=== PATIENT | female | born 1980 | race Caucasian/White ===

== ENCOUNTER 2016-11-12 18:56 | Emergency (ER) | payer BC ==
[~2016-11-12] VITALS: Ht 160 cm; Wt 71.3 kg
[~2016-11-12 18:56] MED LIST: ASPIRIN 81M81 MG/TA2 PO; FOLIC ACID 40400 MCG PO; PRENATAL1 TA1 PO; PROMETRIUM200 M1 PO; VITAMIND3 5000 PO
[2016-11-12 19:00] VITALS: TEMP 98.2
[2016-11-12] MEDS ORDERED: PROPYLTHIOURACI50 M1 PO (19:03)
[2016-11-12] MEDS ORDERED: GLUCOPHAGE500 MG/TAB PO (19:04)
[2016-11-12] MEDS ORDERED: FLONASE NASAL S16 GM NS (19:05)
[2016-11-12] MEDS ORDERED: VITAMIN B100 CO1 TAB PO (19:05)
[2016-11-12] MEDS ORDERED: ZYRTEC 10MG10 MG PO (19:06)
[2016-11-12 19:55] LABS: PH 6 (5-8); SQUAMOUS EPITHELIAL 0-2 /hpf; URINE APPEARANCE Clear; URINE BACTERIA Rare /hpf; URINE BILIRUBIN Negative (NEGATIVE); URINE BLOOD Negative (NEGATIVE); URINE COLOR Straw; URINE GLUCOSE Negative (NEGATIVE); URINE KETONE Negative (NEGATIVE); URINE RBC 0-2 /hpf; URINE UROBILINOGEN Negative (NEGATIVE); URINE WBC 0-2 /hpf
[2016-11-12 21:33] VITALS: BP 131/80; PULSE 90
[2016-11-13 01:35] LABS: CHLAMYDIA/TRACH by PCR Female NOT DETECTED; NEISSERIA GON by PCR Female NOT DETECTED
== END 2016-11-12 21:32 | disposition home or self-care (01) ==
LOC: COL.ER 18:56
PROVIDERS: Emergency Medicine
DX: O20.0 Threatened abortion (principal); Z3A.08 8 weeks gestation of pregnancy; O09.521 Supervision of elderly multigravida, first trimester; O99.281 Endocrine, nutritional and metabolic diseases complicating pregnancy, first trimester; E03.9 Hypothyroidism, unspecified; E28.2 Polycystic ovarian syndrome

== ENCOUNTER → 2020-08-22 | Outpatient (CLI) | payer BC ==
[2004-06-20 01:05] VITALS: TEMP 99.4
[~2020-08-22] MED LIST changes: +FLONASE NASAL S16 GM NS; +GLUCOPHAGE500 MG/TAB PO; +PROPYLTHIOURACI50 M1 PO; +VITAMIN B100 CO1 TAB PO; +ZYRTEC 10MG10 MG PO
== END ==
LOC: COL.RAD 11:31
DX: E05.90 Thyrotoxicosis, unspecified without thyrotoxic crisis or storm (principal); E05.00 Thyrotoxicosis with diffuse goiter without thyrotoxic crisis or storm
CPT/HCPCS: A9516

== ENCOUNTER → 2020-08-23 | Outpatient (CLI) | payer BC ==
[2004-06-20 01:05] VITALS: TEMP 99.4
== END ==
LOC: COL.RAD 11:45
DX: E05.00 Thyrotoxicosis with diffuse goiter without thyrotoxic crisis or storm (principal)